=== PATIENT | female | born 1995 | race Two or more races ===

== ENCOUNTER 2020-11-17 04:22 | Emergency (ER) | payer MEDICAID ==
[~2020-11-17] VITALS: Ht 154.9 cm; Wt 54.4 kg
[2020-11-17] MEDS ORDERED: IBUPROFEN 400 MG TABLET ONE (04:49)
[2020-11-17] MEDS: IV NS 0.9% 1,000 ML BAG IV ONE (04:52)
[2020-11-17] MEDS: IBUPROFEN 400 MG TABLET PO ONE (04:52)
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
[2020-11-17 04:56] LABS: BASOPHILS # (AUTO) 0.1 K/uL (0.0-0.2); BASOPHILS % (AUTO) 1.2 % (0.0-2.0); EOSINOPHILS % (AUTO) 0.1 % (0.0-6.0); HEMATOCRIT 41 % (33-45); HEMOGLOBIN 13.6 g/dL (11.5-14.8); LYMPHOCYTES # (AUTO) 1.1 K/uL (0.8-4.8); MEAN CORPUSCULAR HGB CONC 33 g/dl (31.0-36.0); MEAN CORPUSCULAR VOLUME 96 fL (82-100); MONOCYTES # (AUTO) 0.6 K/uL (0.1-1.30); MONOCYTES % (AUTO) 5.3 % (2.0-12.0); NEUTROPHILS # (AUTO) 9.9 K/uL (1.8-8.9); NEUTROPHILS % (AUTO) 84.4 % (43.0-81.0); PLATELET COUNT (AUTO) 371 K/uL (150-450); RED BLOOD CELL COUNT(AUTO) 4.29 MIL/uL (4.0-5.2); WHITE BLOOD COUNT (AUTO) 11.7 K/uL (4.3-11.0)
[2020-11-17 05:10] LABS: BILIRUBIN,DIRECT 0.1 mg/dL (0.0-0.2); BILIRUBIN,TOTAL 0.6 mg/dL (0.2-1.0); CALCIUM, SERUM 8.7 mg/dL (8.5-10.1); CREATININE 0.9 mg/dL (0.6-1.3); POTASSIUM 3.6 mmol/L (3.5-5.1); TOTAL PROTEIN, SERUM 7.8 g/dL (6.4-8.2)
[2020-11-17] MEDS ORDERED: IOHEXOL-300 100 ML VIAL IV ONE (05:13)
[2020-11-17] MEDS ORDERED: IV NS 0.9% 250 ML IV ONE (05:13)
[2020-11-17] MEDS ORDERED: CT SWABBABLE VALVE TRANS SET 1 EA INFUS.SET MC ONE (05:13)
[2020-11-17] MEDS ORDERED: MORPHINE SULFATE INJ 2 MG/ML DISP.SYRIN ONE (05:51)
[2020-11-17] MEDS: MORPHINE SULFATE INJ 2 MG/ML DISP.SYRIN IV ONE (05:56)
--- NOTE | 2020-11-17 06:14 | NUR ---
CALLED [facility] AD SPOKE TO MARILY. NO UROLOGIST ON BOARD
--- NOTE | 2020-11-17 06:18 | NUR ---
DR LEAVITT ON THE PHONE W/ DR LUZ ANTUNEZ AT [facility]
--- NOTE | 2020-11-17 06:20 | NUR ---
PT GOT ACCEPTED BY DR ANTUNEZ AT [facility]. PER DR ANTUNEZ TO CALL 911 TO TRANSFER TH PT OVER
--- NOTE | 2020-11-17 06:30 | NUR ---
CALLED [facility]. NO [facility] TRANSPO AVAILABLE
[2020-11-17 06:35] VITALS: BP 113/65
--- NOTE | 2020-11-17 06:45 | NUR ---
CALLED [employer] TO GENERAL LOT ATTENDANT THE PT
--- NOTE | 2020-11-17 06:47 | NUR ---
REPORT GIVEN TO VIBHA BARRERA FOR [facility]
--- NOTE | 2020-11-17 06:55 | NUR ---
86 AT BED SIDE TO [employer] [place] THE PT
== END 2020-11-17 07:06 | disposition short-term general hospital (02) ==
LOC: ER 04:36
DX: S37.29XA Other injury of bladder, initial encounter (principal); S90.812A Abrasion, left foot, initial encounter; V00.142A Scooter (nonmotorized) colliding with stationary object, initial encounter; Y92.89 Other specified places as the place of occurrence of the external cause; Z88.0 Allergy status to penicillin; Z88.2 Allergy status to sulfonamides; F10.129 Alcohol abuse with intoxication, unspecified; Y90.6 Blood alcohol level of 120-199 mg/100 ml; Z20.822 Contact with and (suspected) exposure to COVID-19
CPT/HCPCS: 36415; 74177; 80048; 80076; 80320; 85025; 85730; 87426; 96361; 96374; 99291; C9803; J2270; J7050; Q9967; G0480